=== PATIENT | male | born 1940 | race Caucasian/White ===

== ENCOUNTER 2022-05-20 10:47 | Day surgery (SDC) | payer MEDICARE, SELFPAY ==
--- NOTE | 2022-05-06 09:51 | PC.NURSE ---
PREOP INTERVIEW COMPLETE. PT STATES HE HAS NOT YET RECEIVED HIS BOWEL PREP INSTRUCTIONS. AT THE END OF INTERVIEW, I TRANSFERRED PT TO DR VITAL OFFICE. PT TOLD TO REQUEST BOWEL PREP INSTRUCTIONS. PT VERBALIZED UNDERSTANDING.
[2022-05-06 09:52] VITALS: BMI 26.1
--- NOTE | 2022-05-19 13:09 | SUR.PREOP ---
0900, late note, PT CALLED TO SPEAK TO NURSE REGARDING COLONOSCOPY TOMORROW, 05/20/22. PT STATES HE TAKE A FIBER SUPPLEMENT DAILY. HE HAD HIS LAST COLONOSCOPY IN [address] WILLIAM. HE HAD A PROSTATE BIOPSY IN [address] CASAS.
--- NOTE | 2022-05-20 11:54 | P.PNAN_ITS ---
Anes - Initial Pre Proc Eval Procedure: Operation Date: 05/20/22 12:30 Proposed Procedures p Screening Colonoscopy - Camden Oliveira MD Date/Time: 05/20/22 11:54 Surgeon: Camden Oliveira MD Pre Op Diagnosis: Neoplasm Screening Patient Data Age: 81 Gender: M Height: 1.74 m Weight: 79 kg Allergies Allergy/AdvReac Type Severity Reaction Status Date / Time No Known Allergies Allergy Verified 05/20/22 12:07 Home Medications Medication Instructions Recorded Confirmed Type sodium,potassium,mag sulfates 17.5 See Rx Instructions PO .COMPLEX 05/04/22 05/20/22 Rx gram-3.13 gram-1.6 gram oral soln #354 mL (Suprep Bowel Prep Kit) amlodipine 10 mg tablet 10 mg PO DAILY 05/06/22 05/20/22 History atorvastatin 20 mg tablet 20 mg PO HS 05/06/22 05/20/22 History finasteride 5 mg tablet 5 mg PO HS 05/06/22 05/20/22 History quinapril 40 mg tablet 40 mg PO DAILY 05/06/22 05/20/22 History psyllium husk 0.52 gram capsule 0.52 g PO DAILY 05/19/22 05/20/22 History (Fiber (psyllium husk)) Patient hx anesthesia problems: none Family hx anesthesia problems: none Results Review: All pre-operative results and documents have been reviewed as part of the pre-operative evaluation. [facility] Past Medical History Medical History (Updated 05/20/22 @ 12:25 by Camden Oliveira MD) Hyperlipidemia Hypertension Family History Family History (Updated 12/12/14 @ 08:47 by DOCTOR UNKNOWN) Mother Hypertension Sibling Malignant neoplasm of prostate Father Family history of heart disease in male family member before age 55 Acute myocardial infarction Social History Social History Smoking status: Never smoker Alcohol intake: current Drinks per week: 1 Alcohol use details: 1 GLASS OF WINE PER WEEK Substance use: never Substance use type: does not use Living arrangements: with family Spiritual care concerns: No Anes - Eval Final PreProcedure Day of Procedure 05/20/22 11:54 Patient weight: overweight Heart: regular rate and rhythm Lungs: clear to auscultation Airway: Mallampati scale class II Neurological: alert and oriented Last oral intake: >/= 8 hours ASA classification: II Emergent: no Anesthetic plan: proceed Anesthesia type and monitoring: general GIVS and standard monitoring Results Review: All pre-operative results and documents have been reviewed as part of the pre- operative evaluation. Informed Consent: The patient's anesthetic plan and its attendant risks and benefits were discussed with the patient/family/POA. Questions were solicited and answers provided to the satisfaction of the patient/family/POA.
--- NOTE | 2022-05-20 12:24 | P.HP_ITS ---
History of Present Illness History of Present Illness Consent: Risks, benefits, and alternatives have been discussed and questions answered. Patient agrees to proceed with procedure. Chief complaint: Neoplasm Screening Narrative: Joe Christina is a 81 year old male Presents for screening colonoscopy. Patient's current weight appetite and bowel movements are normal. Patient denies abdominal pain. He has had no bleeding. Family history is noncontributory. Previous colonoscopy 9 or 10 years ago was unremarkable. Review of Systems Review of Systems: Review of systems noncontributory. [facility] Past Medical History Medical History (Updated 05/20/22 @ 12:25 by Camden Oliveira MD) Hyperlipidemia Hypertension Family History Family History (Updated 12/12/14 @ 08:47 by DOCTOR UNKNOWN) Mother Hypertension Sibling Malignant neoplasm of prostate Father Family history of heart disease in male family member before age 55 Acute myocardial infarction Social History Social History Smoking status: Never smoker Alcohol intake: current Drinks per week: 1 Alcohol use details: 1 GLASS OF WINE PER WEEK Substance use: never Substance use type: does not use Living arrangements: with family Spiritual care concerns: No Meds Home Medications and Allergies Home Medications Medication Instructions Recorded Confirmed Type sodium,potassium,mag sulfates 17.5 See Rx Instructions PO .COMPLEX 05/04/22 05/20/22 Rx gram-3.13 gram-1.6 gram oral soln #354 mL (Suprep Bowel Prep Kit) amlodipine 10 mg tablet 10 mg PO DAILY 05/06/22 05/20/22 History atorvastatin 20 mg tablet 20 mg PO HS 05/06/22 05/20/22 History finasteride 5 mg tablet 5 mg PO HS 05/06/22 05/20/22 History quinapril 40 mg tablet 40 mg PO DAILY 05/06/22 05/20/22 History psyllium husk 0.52 gram capsule 0.52 g PO DAILY 05/19/22 05/20/22 History (Fiber (psyllium husk)) Allergies Allergy/AdvReac Type Severity Reaction Status Date / Time No Known Allergies Allergy Verified 05/20/22 12:07 Exam Narrative: Physical exam reveals patient to be alert. Vital signs stable. HEENT exam is unremarkable. Patient is anicteric. Lungs are clear to auscultation and percussion. Heart is without murmur or extra sounds. Abdomen bowel sounds are present soft nontender with no hepatosplenomegaly. Digital external rectal exam is normal. Assessment and Plan Assessment and plan (1) Encounter for screening colonoscopy: Code(s): Z12.11 - Encounter for screening for malignant neoplasm of colon Status: Acute Assessment and Plan: Patient presents today for screening colonoscopy. He appears to be at average risk for colon polyps. Further recommendations may be given after endoscopy.
[2022-05-20] MEDS: LACTATED RINGERS 1,000 ML 150 ML IV CONT (12:35)
[2022-05-20 12:37] VITALS: BP 163/92; PULSE 89; RESP 18; TEMP 37; O2SAT 97
[2022-05-20 13:30] VITALS: BP 126/79; PULSE 84; RESP 18; O2SAT 99
--- NOTE | 2022-05-20 13:31 | WPDANESPN ---
Anes - Prog Note Post-Op Date/Time: 05/20/22 13:31 Cardiovascular status: normal Respiratory status: normal Airway patency: baseline Mental status: baseline Post-Op hydration status: normal Vital Signs: Last Vital Signs Temp 37.0 C 05/20/22 12:37 Pulse 89 05/20/22 12:37 Resp 18 05/20/22 12:37 BP 163/92 H 05/20/22 12:37 Pulse Ox 97 05/20/22 12:37 O2 Del Method Room Air 05/20/22 12:37 Pain Score (VAS): 0 I/O: Intake & Output 05/19/22 05/20/22 05/20/22 23:59 07:59 15:59 Intake Total 500 Balance 500 Post-procedural complaints: none Patient Feedback: Patient satisfied with anesthetic care. Other Findings: Patient vital signs back to baseline. Patient denies nausea and vomiting. Patient's pain under control. Patient OK for discharge.
[2022-05-20 13:40] VITALS: BP 127/71; PULSE 78; RESP 20; O2SAT 99
[2022-05-20 13:50] VITALS: BP 129/80; PULSE 85; RESP 20; O2SAT 99
== END 2022-05-20 14:05 | disposition home or self-care (01) ==
PROVIDERS: PCP Physician Assistant; Visit Provider Internal Medicine Gastroenterology
PROC: 0DJD8ZZ Inspection of Lower Intestinal Tract, Via Natural or Artificial Opening Endoscopic (ICD-10-PCS; CPT 45378; principal; 2022-05-20 12:30)
DX: Z12.11 Encounter for screening for malignant neoplasm of colon (principal)
CPT/HCPCS: 45378

== ENCOUNTER 2023-05-18 00:49 | Day surgery (SDC) | payer MEDICARE, SELFPAY ==
[2023-05-17 14:06] VITALS: BMI 26.8
[2023-05-18] VITALS (14 sets, daily range): BP systolic 118–155; BP diastolic 53–86; PULSE 62–85; RESP 12–22; TEMP 36.5; O2SAT 94–100; BMI 25.8
[2023-05-18 07:49] LABS: Basophils Percent Auto 0.8 % (0.2-1.2); Eosinophils Absolute Auto 0.1 K/mm3 (0-0.3); Eosinophils Percent Auto 1.6 % (0-4.4); Hematocrit 47.1 % (42.0-52.0); Immature Granulocyte Absolute 0.02 K/mm3 (0.00-0.031); Immature Granulocyte Percent A 0.4 % (0-0.5); Lymphocytes Absolute Auto 0.92 K/mm3 (0.9-3.2); Lymphocytes Percent Auto 18.1 % (18.3-44.2); Mean Corpuscular HGB Conc 31.8 g/dl (32-36); Mean Corpuscular Hemoglobin 27.4 pg (26-34); Mean Corpuscular Volume 85.9 fl (80-100); Mean Platelet Volume 9.1 fl (7.4-10.4); Monocytes Absolute Auto 0.4 K/mm3 (0.1-0.6); Monocytes Percent Auto 7.3 % (2.6-8.5); Neutrophils Absolute Auto 3.7 K/mm3 (1.3-6.7); Neutrophils Percent Auto 71.8 % (45.5-73.1); Platelet Count Result 205 k/mm3 (150-375); Red Blood Count 5.48 M/mm3 (4.6-6.20); Red Cell Distribution Width 14.4 % (11.5-14.5); White Blood Count 5.1 K/mm3 (4.5-10.0)
[2023-05-18 07:59] LABS: Anion Gap 9 mmol/L (8-16); Blood Urea Nitrogen 19 mg/dL (9-20); Calcium 9.3 mg/dL (8.4-10.2); Carbon Dioxide 27 mmol/L (22-30); Chloride 105 mmol/L (98-107); Estimated CRCL calculation 56 ml/min; Estimated Glomerular Filt Rate > 60; Glucose 105 mg/dL (65-110); Potassium 3.3 mmol/L (3.4-5.0); Sodium 141 mmol/L (137-145)
[2023-05-18 08:00] LABS: INR 1.1; Prothrombin Time 14.4 Seconds (11.1-14.7)
--- NOTE | 2023-05-18 10:00 | PM.IMHP ---
H&P: HPI History of Present Illness Date/Time: 05/18/23 10:00 Chief Complaint: Outpatient [facility] Narrative: Patient is an 82 year old male with hypertension, hyperlipidemia who is referred for [facility] for heart failure with reduced ejection fraction, LBBB, chest pain. 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 Review of Systems Review of Systems: All systems reviewed & are unremarkable except as noted in HPI and below (HPI) [facility] Past Medical History Medical History Hyperlipidemia Hypertension Family History Family History Mother Hypertension Sibling Malignant neoplasm of prostate Father Family history of heart disease in male family member before age 55 Acute myocardial infarction Hypertension Social History Social History Smoking status: Never smoker Second hand tobacco smoke exposure: No Alcohol intake: former Drinks per week: 1 Alcohol use details: 6 oz wine with dinner Substance use: never Substance use type: does not use Lack of Transportation: No Lack of Food: Never True Current Housing: I Have Housing Concerned About Future Housing: No Difficulty Paying Gas/Electric Bills: No Difficulty Paying for Meds: No Currently Unemployed: No Education: Trade/Vocational Certificate Difficulty w/ Childcare or Family Care: No Living arrangements: with family Spiritual care concerns: No Meds Home Medications and Allergies Home Medications Medication Instructions Recorded Confirmed Type amlodipine 10 mg tablet 10 mg PO DAILY 05/06/22 05/17/23 History atorvastatin 20 mg tablet 20 mg PO HS 05/06/22 05/18/23 History finasteride 5 mg tablet 5 mg PO HS 05/06/22 05/18/23 History psyllium husk 0.52 gram capsule 0.52 g PO DAILY 05/19/22 05/17/23 History (Fiber (psyllium husk)) lisinopril 40 mg tablet 40 mg PO DAILY 12/09/22 05/18/23 History cholecalciferol (vitamin D3) 25 1,000 unit PO DAILY 05/17/23 05/17/23 History mcg (1,000 unit) tablet (Vitamin D3) garlic 1,000 mg capsule 1,000 mg PO DAILY 05/17/23 05/17/23 History Allergies Allergy/AdvReac Type Severity Reaction Status Date / Time No Known Allergies Allergy Verified 05/17/23 14:28 Vital Signs Vital Signs - 24 hr 05/18/23 07:27 Temperature 36.5 C Pulse Rate 67 Respiratory Rate 12 Blood Pressure 155/82 H Pulse Oximetry 97 Oxygen Delivery Room Air Exam Const: General: comfortable and no acute distress HENMT: Mouth: Yes moist mucous membranes Eyes: General: appearance normal, both eyes and all related structures Sclera: sclerae normal Neck: Neck: supple Resp: Effort & Inspection: normal respiratory effort Cardio: Rate: regular rate Rhythm: regular rhythm Skin: General skin exam: normal color Neuro: Speech: normal speech Psych: Mental Status: mental status grossly normal Affect: normal affect H&P: Results Labs Labs: Short CBC 05/18/23 Range/Units 07:36 WBC 5.1 (4.5-10.0) K/mm3 Hgb 15.0 (14.0-18.0) g/dL Hct 47.1 (42.0-52.0) % Plt Count 205 (150-375) k/mm3 [facility] 05/18/23 07:36 Sodium 141 Potassium 3.3 L Chloride 105 Carbon Dioxide 27 BUN 19 Creatinine 0.90 Glucose 105 Calcium 9.3 Assessment and Plan Assessment and plan (1) Cardiomyopathy: Code(s): I42.9 - Cardiomyopathy, unspecified Status: Acute Plan Proceed with [facility]
--- NOTE | 2023-05-18 10:04 | WPDMODSED ---
Moderate Sedation Note-Pt Data Patient Data Diagnosis: HFrEF, LBBB, chest pain Present Complaint: HFrEF, LBBB, chest pain Procedure to be performed/Plan: Coronary angiography, left heart cath, +/- PCI Allergies Allergy/AdvReac Type Severity Reaction Status Date / Time No Known Allergies Allergy Verified 05/17/23 14:28 Home Medications Medication Instructions Recorded Confirmed Type amlodipine 10 mg tablet 10 mg PO DAILY 05/06/22 05/17/23 History atorvastatin 20 mg tablet 20 mg PO HS 05/06/22 05/18/23 History finasteride 5 mg tablet 5 mg PO HS 05/06/22 05/18/23 History psyllium husk 0.52 gram capsule 0.52 g PO DAILY 05/19/22 05/17/23 History (Fiber (psyllium husk)) lisinopril 40 mg tablet 40 mg PO DAILY 12/09/22 05/18/23 History cholecalciferol (vitamin D3) 25 1,000 unit PO DAILY 05/17/23 05/17/23 History mcg (1,000 unit) tablet (Vitamin D3) garlic 1,000 mg capsule 1,000 mg PO DAILY 05/17/23 05/17/23 History Current Medications: Active Medications Sodium Chloride (Normal Saline Iv) 500 mls @ 100 mls/hr IV CONT .Q5H RENETTA Sodium Chloride (Normal Saline Iv) 1,000 mls @ 125 mls/hr IV CONT .Q8H ONE Stop: 05/18/23 17:58 Sedation/Anesthesia: No previous sedation/anesthesia problems (including family history). [facility] Past Medical History Medical History Hyperlipidemia Hypertension Family History Family History Mother Hypertension Sibling Malignant neoplasm of prostate Father Family history of heart disease in male family member before age 55 Acute myocardial infarction Hypertension Social History Social History Smoking status: Never smoker Second hand tobacco smoke exposure: No Alcohol intake: former Drinks per week: 1 Alcohol use details: 6 oz wine with dinner Substance use: never Substance use type: does not use Lack of Transportation: No Lack of Food: Never True Current Housing: I Have Housing Concerned About Future Housing: No Difficulty Paying Gas/Electric Bills: No Difficulty Paying for Meds: No Currently Unemployed: No Education: Trade/Vocational Certificate Difficulty w/ Childcare or Family Care: No Living arrangements: with family Spiritual care concerns: No Mod Sed Physical Exam Physical Exam Pre Procedural Exam: Normal: Appearance, Lungs, Heart Rate, Heart Rhythm, Neuro Exam, Abdomen, Extremities and Skin Hours since solid foods: 12 Hours since liquid intake: 8 Mallampati Classification: class II Internal Medicine - PN: Obj Da Vital Signs Vital Signs: Vital Signs - 24 hr 05/18/23 07:27 Temperature 36.5 C Pulse Rate 67 Respiratory Rate 12 Blood Pressure 155/82 H Pulse Oximetry 97 Oxygen Delivery Room Air Meds/Results Medications: Active Medications Generic Name Dose Route Start Last Admin Trade Name Freq PRN Reason Stop Dose Admin Sodium Chloride 500 mls @ 100 mls/hr 05/18/23 07:00 Normal Saline Iv IV CONT .Q5H RENETTA Sodium Chloride 1,000 mls @ 125 mls/hr 05/18/23 09:59 Normal Saline Iv IV CONT 05/18/23 17:58 .Q8H ONE Labs 05/18/23 07:36 05/18/23 07:36 Labs: Laboratory Results - last 24 hr 05/18/23 07:36 WBC 5.1 RBC 5.48 Hgb 15.0 Hct 47.1 MCV 85.9 MCH 27.4 MCHC 31.8 L RDW 14.4 Plt Count 205 MPV 9.1 Immature Gran % (Auto) 0.4 Neut % (Auto) 71.8 Lymph % (Auto) 18.1 L [place] % (Auto) 7.3 Eos % (Auto) 1.6 Baso % (Auto) 0.8 Lymph # (Auto) 0.92 [place] # (Auto) 0.4 Eos # (Auto) 0.1 Baso # (Auto) 0.0 Abs Immat Gran (auto) 0.02 Absolute Neuts (auto) 3.7 Absolute Nucleated RBC 0.0 Nucleated RBC % 0.0 PT 14.4 INR 1.1 Sodium 141 Potassium 3.3 L Chloride 105 Carbon Dioxide 27 Anion Gap 9 BUN 19 Creatinine 0.90 Estim Creat Clear Calc 56 Estimated GFR > 60
--- NOTE | 2023-05-18 10:05 | WPDCARDPROC ---
Cardiac Cath Procedure Note Date of procedure:: 05/18/23 Performing physician:: CATHETERIZATION LABORATORY REPORT Procedure Date: 05/18/2023 Transport Operations Inspector: Jose Diaz M.D., [facility]? Referring Physician: Von Gonsalez M.D. Anesthesia: Versed and Fentanyl were ordered and given in my presence at 09:21, procedure ended at 09:45. Supervision of nurse monitored moderate sedation with Versed and Fentanyl was provided for 24 minutes. Total of Versed 1mg and Fentanyl 25mcg were administered by the Visual Merchandising Director RN Cinthya Ayala. Pre-op Diagnosis: Coronary artery disease Post-op Diagnosis: Mild non-obstructive coronary artery disease. Procedure(s): 1. Moderate sedation 2. Ultrasound-guided access of the right radial artery 3. Coronary angiography Access Site: Right radial artery Brief History and Clinical Indications: Patient is an 82 year old male with hypertension, hyperlipidemia who is referred for [facility] for heart failure with reduced ejection fraction, LBBB, chest pain. 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 All risks, benefits and alternatives to left heart catheterization with or without percutaneous coronary intervention was discussed at length with the patient. Risk of complications including but not limited to bleeding, infection, arrhythmia, stroke, worsening kidney function, blood loss, groin hematoma, limb loss, emergency coronary artery bypass grafting, and even were discussed with the patient and all questions were answered. The patient understood and wished to proceed. Time out called, patient name, date of , medical record number, allergies, procedure performed, identify Transport Operations Inspector, patient and staff member concurred with accurate data, procedure carried on. Findings: LEFT HEART CATHETERIZATION FINDINGS: 1. Left main: The left main coronary artery is widely patent without any significant obstructive disease. 2. Left anterior descending: The proximal-mid LAD has mild disease. The mid LAD has luminal irregularities. The LAD tapers to small caliber in its distal portion. 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 There is a large caliber first diagonal branch with luminal irregularities. The second diagonal branch is a very small caliber branch. The third diagonal branch is a large caliber vessel with mild disease in its proximal-mid portion. 3. Left circumflex: The left circumflex artery has luminal irregularities. There is a large caliber OM vessel with mild disease in its proximal portion. No significant obstructive angiographic disease. 4. Right coronary artery: The RCA has mild disease in the mid portion. No significant obstructive angiographic disease. The RCA is the dominant vessel. Description of Procedure: Informed consent signed and placed in the chart. Patient transferred to wharf labourer room. Prepped and draped in usual sterile fashion. 2% lidocaine injected subcutaneously in right wrist area. 22-gauge venipuncture catheter used to access the right radial artery under ultrasound guidance. 6-FR slender sheath placed in right radial artery. Nitroglycerine and Verapamil were given intraarterial through the sheath. Versacore wire advanced under fluoroscopy 5F Tig 4 diagnostic catheter engaged Left Main Coronary Artery. 5F FR 4 diagnostic catheter engaged Right Coronary Artery Multiple orthogonal angiogram obtained and reviewed Hemostasis was achieved by application of TR band. Post Operative Condition: Stable No significant blood loss Disposition: Home Plan: The patient will be monitored in the recovery area. Discharge home after post cath bed rest is completed. The above findings were discussed with the referring physician. Continue aggressive medical therapy and risk factor sarah
--- NOTE | 2023-05-23 10:11 | PC.NURSE ---
Pt. calls into [facility] this moring 05/23/23, stating I did not get any instructions on when to remove my dressing after my procedure. Pt. states he still has gauze and clear tape dressing on right wrist and arm is bruised up to elbow . This pt was an outpatient C with Dr. Diaz on 05/18/23. Post call was completed and charted on 05/19/23. This RN instructed pt. to remove gauze and tape dressing from site and gently wash with soap and water and pat dry. Instructed pt to inspect puncture site for s/s infection or non-healing. Pt. reports sensation and movement of r. hand is WNL. Instructed pt. to call cleat maker's office to report bruising and any untoward findings after cleansing punture site. Pt. verbalizes understanding.
== END 2023-05-18 13:30 | disposition home or self-care (01) ==
PROVIDERS: PCP Physician Assistant; Visit Provider Internal Medicine
PROC: (CPT 93454; principal; 2023-05-18 08:30)
DX: I25.10 Atherosclerotic heart disease of native coronary artery without angina pectoris (principal); I42.9 Cardiomyopathy, unspecified; Q24.5 Malformation of coronary vessels; I11.0 Hypertensive heart disease with heart failure; I50.9 Heart failure, unspecified; I44.7 Left bundle-branch block, unspecified; E78.5 Hyperlipidemia, unspecified
CPT/HCPCS: 36415; 80048; 85025; 85610; 93454; A9270; C1769; C1887; C1894; J1644; J2250; J2305; J3010; J7040

== ENCOUNTER 2023-08-10 09:48 | Outpatient (CLI) | payer MEDICARE, SELFPAY ==
[2023-08-10 11:20] LABS: Basophils Percent Auto 0.5 % (0.2-1.2); Eosinophils Absolute Auto 0.1 K/mm3 (0-0.3); Eosinophils Percent Auto 1.7 % (0-4.4); Hematocrit 48.4 % (42.0-52.0); Hemoglobin 15.5 g/dL (14.0-18.0); Immature Granulocyte Absolute 0.01 K/mm3 (0.00-0.031); Immature Granulocyte Percent A 0.2 % (0-0.5); Lymphocytes Absolute Auto 1.13 K/mm3 (0.9-3.2); Lymphocytes Percent Auto 19.2 % (18.3-44.2); Mean Corpuscular Hemoglobin 27.5 pg (26-34); Mean Platelet Volume 8.6 fl (7.4-10.4); Monocytes Absolute Auto 0.6 K/mm3 (0.1-0.6); Monocytes Percent Auto 9.4 % (2.6-8.5); Neutrophils Absolute Auto 4.1 K/mm3 (1.3-6.7); Platelet Count Result 182 k/mm3 (150-375); Red Blood Count 5.63 M/mm3 (4.6-6.20); Red Cell Distribution Width 14.9 % (11.5-14.5); White Blood Count 5.9 K/mm3 (4.5-10.0)
[2023-08-10 11:25] LABS: Albumin Level 4.4 g/dL (3.5-5.1); Anion Gap 7 mmol/L (4-12); Blood Urea Nitrogen 19 mg/dL (9-20); Calcium 9.1 mg/dL (8.4-10.2); Carbon Dioxide 32 mmol/L (22-30); Chloride 103 mmol/L (98-107); Estimated Glomerular Filt Rate > 60; Glucose 81 mg/dL (65-110); Potassium 3.3 mmol/L (3.4-5.0); Sodium 142 mmol/L (137-145)
[2023-08-10 11:39] LABS: Hemoglobin A1C 5.5 % (<5.7)
[2023-08-10 12:03] LABS: Urine Cotinine NEGATIVE
== END 2023-08-10 09:49 | disposition home or self-care (01) ==
LOC: ANHSURGERY 09:52
PROVIDERS: PCP Physician Assistant; Visit Provider Orthopaedic Surgery
DX: M16.12 Unilateral primary osteoarthritis, left hip (principal); Z01.818 Encounter for other preprocedural examination
CPT/HCPCS: 80048; 80307; 82040; 83036; 85025; 87081

== ENCOUNTER 2023-09-06 10:31 | Observation (INO) | payer MEDICARE, SELFPAY ==
[2023-08-10 10:00] VITALS: BMI 27.4
--- NOTE | 2023-08-10 10:20 | PC.NURSE ---
Report to the Outpatient Waiting Room, entrance under the green pavilion located off [facility], at time __6:00 AM on date _09/05/23 . Planned Procedure Time: 7:30 AM . Time changes happen often and if your time is changed the preop area will call you the afternoon before. - You and your visitor will be asked to self-screen and do not enter if you have any COVID symptoms. - A mask is optional within the hospital at this time. Patients may have clear liquids (water, carbonated beverages, clear teas, apple juice) until 3 hours prior to surgery ( 4:30 AM)with a maximum of 20 ounces. - No food from midnight until time of surgery - Infants may have breast milk until 4 hours before surgery, infant formula 6 hours prior to surgery. - Children will be allowed to drink immediately following surgery. If applicable, please bring a bottle or sippy cup to assist with drinking. Juice, water, soda, and popsicles are readily available. For infants on formula, please bring formula the day of surgery. Pacifiers are allowed. Take the following medications with a SIP of water the morning of surgery: ___AMLODIPINE,METOPROLOL DO NOT STOP ANY OF YOUR OTHER PRESCRIPTION MEDICATIONS PRIOR TO SURGERY ?EXCEPT THE FOLLOWING Medications to discontinue per physician ___HOLD ALL VITAMINS AND SUPPLEMENTS _3 DAYS PRE OP .LAST DOSE 09/01/23 Date to take last dose Please no make-up, nail niuean, hairspray, perfume, deodorant, or body powder the day of surgery. No jewelry (including any body piercings) or valuables the day of surgery, leave them at home. Please take a shower or bath the night before, or the morning of, surgery with an antibacterial soap. Wear comfortable, loose fitting clothing. Children are encouraged to wear pajamas. - Jewelry must be removed prior to entering the operating room. Rings and piercings that are not removed may be cut off. - The hospital will not accept responsibility for valuables. - Please leave all valuables, including medications, at home the day of surgery. If you are going home after surgery, a licensed driver license reviewing officer must drive you home. - NO public transportation without another adult if you receive anesthesia. - We recommend that an adult stay with you for 24 hours following discharge. - We also recommend that you do not drive, make important decision, drink alcoholic beverages, or take any drugs that were not prescribed by your health care provider for at least 24 hours after your discharge time. Follow any additional instructions given to you from your surgeon. If you or anyone in your household have experienced Covid symptoms in the past week, please notify your surgeon or the nurse liaison at the phone number below for possible testing. VERBAL AND WRITTEN instructions given to __PATIENT AND SOLOMON and asked if any additional questions and then verbalized understanding. Patient advised to call surgeon office or pre surgery nurse liaison [phone] if any additional questions.
[2023-08-10 10:25] VITALS: BP 132/87; PULSE 62; RESP 18; TEMP 36.6; O2SAT 98
--- NOTE | 2023-09-02 10:16 | PM.IMHP ---
H&P: HPI History of Present Illness Date/Time: 09/02/23 10:16 Chief Complaint: Left hip DJD Narrative: 82-year-old male who presents today for his left anterior total hip arthroplasty patient having pain 6 years. He has severe osteoarthritis. He is having pain on daily basis. It is limiting his normal daily activities. Patient does have a cardiac history and is unable take anti-inflammatories due to this. He feels at this point he would rather proceed with total hip arthroplasty rather than continue nonsurgical treatment. Review of Systems Review of Systems: All systems reviewed & are unremarkable except as noted in HPI and below PMFSH Past Medical History Medical History Hyperlipidemia Hypertension Family History Family History Mother Hypertension Sibling Malignant neoplasm of prostate Father Family history of heart disease in male family member before age 55 Acute myocardial infarction Hypertension Social History Social History (Updated 07/11/23 @ 15:15 by Yvette Posadas CMA) Smoking status: Never smoker Second hand tobacco smoke exposure: No Additional smoking assessment comments: DENIES ANY FORM OF TOBACCO USE Alcohol intake: current Drinks per week: 1 Alcohol use details: 6 oz wine with dinner- hasn't had a drink in the last year Substance use: never Substance use type: does not use Do You Feel Safe in your Home?: Yes Lack of Transportation: No Lack of Food: Never True Current Housing: I Have Housing Concerned About Future Housing: No Difficulty Paying Gas/Electric Bills: No Difficulty Paying for Meds: No Currently Unemployed: No Education: Trade/Vocational Certificate Difficulty w/ Childcare or Family Care: No Living arrangements: with family Occupation/Education: retired Spiritual care concerns: No Meds Home Medications and Allergies Home Medications Medication Instructions Recorded Confirmed Type amlodipine 10 mg tablet 10 mg PO DAILY 05/06/22 08/10/23 History atorvastatin 20 mg tablet 20 mg PO QPM 05/06/22 08/10/23 History finasteride 5 mg tablet 5 mg PO HS 05/06/22 08/10/23 History cholecalciferol (vitamin D3) 25 1,000 unit PO EVERY OTHER DAY 05/17/23 08/10/23 History mcg (1,000 unit) tablet (Vitamin D3) garlic 1,000 mg capsule 1,000 mg PO DAILY 05/17/23 08/10/23 History metoprolol succinate 25 mg 25 mg PO DAILY 07/11/23 08/10/23 History tablet,extended release 24 hr sacubitril 24 mg-valsartan 26 mg 1 tablet PO BID 07/11/23 08/10/23 History tablet (Entresto) multivitamin 1 tablet PO DAILY 08/10/23 08/10/23 History vitamin B complex 1 cap PO EVERY OTHER DAY 08/10/23 08/10/23 History Allergies Allergy/AdvReac Type Severity Reaction Status Date / Time No Known Allergies Allergy Verified 08/10/23 10:01 Exam Narrative: 82-year-old male he is 5 ft 8 177 lb. He is very alert pleasant. His left hip flexion is to 105 which causes some lateral hip pain. Internal rotation lacks 20? from neutral causing him anterior lateral hip pain. External rotation is 35. Stinchfield maneuver causes his anterior lateral hip pain. He has normal abduction strength in the lateral position. No tenderness over the greater trochanter. Skin around the hip and groin crease are all normal. 2+ dorsalis pedis and posterior artery pulse palpable. There is no edema in lower extremities. Resp: Auscultation: clear to auscultation bilaterally Cardio: Rate: regular rate Rhythm: regular rhythm Assessment and Plan Assessment and plan (1) Osteoarthritis of left hip: Qualifiers: Osteoarthritis type: primary Qualified Code(s): M16.12 - Unilateral primary osteoarthritis, left hip Code(s): M16.12 - Unilateral primary osteoarthritis, left hip Status: Acute Plan 82-year-old male who has severe o
[2023-09-05] VITALS (16 sets, daily range): BP systolic 98–141; BP diastolic 46–85; PULSE 58–83; RESP 11–20; TEMP 35.5–36.7; O2SAT 92–100
[2023-09-05] MEDS: VANCOMYCIN 1,250 MG/NS 250 ML BAG 166.67 MG IVPB (07:08)
[2023-09-05] MEDS: LACTATED RINGERS 1,000 ML 30 ML IV CONT ×2 (07:10→11:32)
--- NOTE | 2023-09-05 07:11 | WPDANESEPPF ---
Anes - Initial Pre Proc Eval Procedure: Operation Date: 09/05/23 07:30 Proposed Procedures p Left Total Hip Arthroplasty, Anterior Approach - Clarence Enamorado MD Date/Time: 09/05/23 07:11 Surgeon: Clarence Enamorado MD Pre Op Diagnosis: OA left hip Patient Data Age: 82 Gender: M Height: 1.7 m Weight: 79.5 kg Last Vital Signs Temp 97.8 F 08/10/23 10:25 Pulse 62 08/10/23 10:25 Resp 18 08/10/23 10:25 BP 132/87 08/10/23 10:25 Pulse Ox 98 08/10/23 10:25 O2 Del Method Room Air 08/10/23 10:25 Allergies Allergy/AdvReac Type Severity Reaction Status Date / Time No Known Allergies Allergy Verified 08/10/23 10:01 Home Medications Medication Instructions Recorded Confirmed Type amlodipine 10 mg tablet 10 mg PO DAILY 05/06/22 08/10/23 History atorvastatin 20 mg tablet 20 mg PO QPM 05/06/22 08/10/23 History finasteride 5 mg tablet 5 mg PO HS 05/06/22 08/10/23 History cholecalciferol (vitamin D3) 25 1,000 unit PO EVERY OTHER DAY 05/17/23 08/10/23 History mcg (1,000 unit) tablet (Vitamin D3) garlic 1,000 mg capsule 1,000 mg PO DAILY 05/17/23 08/10/23 History metoprolol succinate 25 mg 25 mg PO DAILY 07/11/23 08/10/23 History tablet,extended release 24 hr sacubitril 24 mg-valsartan 26 mg 1 tablet PO BID 07/11/23 08/10/23 History tablet (Entresto) multivitamin 1 tablet PO DAILY 08/10/23 08/10/23 History vitamin B complex 1 cap PO EVERY OTHER DAY 08/10/23 08/10/23 History Patient hx anesthesia problems: none Family hx anesthesia problems: none Results Review: All pre-operative results and documents have been reviewed as part of the pre-operative evaluation. [facility] Past Medical History Medical History Hyperlipidemia Hypertension Family History Family History Mother Hypertension Sibling Malignant neoplasm of prostate Father Family history of heart disease in male family member before age 55 Acute myocardial infarction Hypertension Social History Social History (Updated 07/11/23 @ 15:15 by Yvette Posadas CMA) Smoking status: Never smoker Second hand tobacco smoke exposure: No Additional smoking assessment comments: DENIES ANY FORM OF TOBACCO USE Alcohol intake: current Drinks per week: 1 Alcohol use details: 6 oz wine with dinner- hasn't had a drink in the last year Substance use: never Substance use type: does not use Do You Feel Safe in your Home?: Yes Lack of Transportation: No Lack of Food: Never True Current Housing: I Have Housing Concerned About Future Housing: No Difficulty Paying Gas/Electric Bills: No Difficulty Paying for Meds: No Currently Unemployed: No Education: Trade/Vocational Certificate Difficulty w/ Childcare or Family Care: No Living arrangements: with family Occupation/Education: retired Spiritual care concerns: No Anes - Eval Final PreProcedure Day of Procedure 09/05/23 07:11 Patient weight: normal Heart: regular rate and rhythm Lungs: clear to auscultation Airway: Mallampati scale class II Neurological: alert and oriented Last oral intake: >/= 8 hours ASA classification: III Emergent: no Anesthetic plan: proceed Anesthesia type and monitoring: general ETT and standard monitoring Results Review: All pre-operative results and documents have been reviewed as part of the pre-operative evaluation. Informed Consent: The patient's anesthetic plan and its attendant risks and benefits were discussed with the patient/family/POA. Questions were solicited and answers provided to the satisfaction of the patient/family/POA.
[2023-09-05] MEDS: ACETAMINOPHEN 500 MG TABLET 1000 MG PO (07:12)
[2023-09-05] MEDS: TRANEXAMIC ACID 1,000MG/ISO100 1,000 MG/100 ML BAG 200 MG IVPB (07:13)
--- NOTE | 2023-09-05 07:15 | WPDHPUPDATE1 ---
History and Physical Update Update Date/Time: 09/05/23 07:15 History and Physical has been reviewed, including an updated exam of the patient. There are NO changes in the patient's condition. Risks, benefits, and alternatives have been discussed and questions answered. Patient agrees to proceed with procedure.
[2023-09-05] MEDS: ceFAZolin 2 GM/D5W 50 ML 2 GM/50 ML BAG IVPB ×2 (07:53→16:56)
[2023-09-05] MEDS: ceFAZolin SODIUM 1 GM VIAL 3 GM (08:24)
[2023-09-05] MEDS: SODIUM CHLORIDE 0.9% IV 37.7 ML, MORPHINE SULFATE INJ (*CRX) 2 MG, ROPivacaine HCL 1% 2... INFILTRATE (08:24)
[2023-09-05] MEDS: ceFAZolin SODIUM 1 GM VIAL 2 GM IV PUSH (10:42)
[2023-09-05] MEDS: TRANEXAMIC ACID 1,000 MG/10 ML AMPUL 1000 MG IV PUSH (10:44)
[2023-09-05] MEDS: fentaNYL CITRATE INJ (*CRX) 100 MCG/2 ML VIAL 25 MCG IV PUSH ×5 (11:50→12:19)
--- NOTE | 2023-09-05 11:51 | W.PM.PROC2 ---
Procedure Note - Detailed Date of Procedure 09/05/23 Pre-op Diagnosis OA left hip Post-op Diagnosis Same Procedure Performed Direct anterior approach left total hip arthroplasty Surgeon Clarence Enamorado MD [employer]er Sandee MARTE Anesthesia General Description of Procedure Patient was brought to the operating room general anesthesia was administered he received 2 g of Ancef weight based vancomycin preoperatively 1 g of TXA. The feet were padded boots applied patient transferred to the [facility] [place] table with SCDs on in place C[place]lin catheter placed. Left hip prepped draped usual fashion. 10 cm longitudinal incision was made starting 3 cm lateral to the ASIS. Fascia over the tensor fascia beba was exposed and longitudinally incised elevating the fascia over the anterior 1/2 the TFL muscle. Interval between TFL and rectus femoris developed. Crossing branches of ascending branch lateral femoral circumflex vessels were ligated with suture divided. Retractor was placed anterior to the capsule hip abducted internally rotated the gluteus minimus elevated off the lateral capsule. Inverted T capsulotomy was performed. Femoral neck osteotomy made according to preoperative templating. Femoral head was removed. It measured 54 mm diameter. It had prominent peripheral overgrowth. Acetabulum was exposed minimal labrum excised. He had large peripheral osteophytes circumferentially. The leg was externally rotated extended and interval between conjoined tendon and piriformis incised allowing the piriformis to flip and the conjoined tendon to recess. With the leg back in the horizontal position acetabulum was exposed and we medialized with a 44 Reamer and reamed up to 53 mm and then a light reaming with a 54 Reamer. We could not insert the trial until a full seating of the 54 Reamer was performed which was done carefully. The 54 trial now fit snugly and we chose the 54 pinnacle cup which was placed at 40? of abduction and anteversion appropriate to the anatomy. An excellent Press-Fit was achieved a single screw placed in the ilium for additional fixation. The 36 inner diameter 0 degree liner was seated without difficulty. We then carefully removed the hypertrophic osteophyte from around the acetabulum circumferentially. The leg was externally rotated extended and the proximal femur exposed and we broached up to a size 6 and trialed and we found that the 8.5 neck was more appropriate the +5 was a bit loose. We had the same leg length as preoperative with the 8.5 neck. There was a little bit of wiggle on the broach and we were able to work up to a size 7 which was seated at the same level and we calcar planed trialed 1 more time and confirmed that the 8.5 gave the same leg length as preoperative and appropriate soft tissue tension and stability. The real Actis 7 standard neck was fully seated without complication no cracks. Excellent Press-Fit achieved. A 0.5 neck length head was trialed 1 more time found to be appropriate and the stainless steel 8.5 mm x 36 mm femoral head was impacted on the [place] clean and dried trunnion after irrigation with antibiotic solution. The hip was reduced stability soft tissue tension reconfirmed. Two additional g of Ancef 1 1 of TXA given at time wound closure. Local anesthetic cocktail was injected. The superior capsular split closed with 2. Vicryl. Fascia closed with running 1. Vicryl. Drain placed deep in the subcu skin closed with 2 subcutaneous Vicryl and glue EBL was 825 any received 3 75 back as Cell Saver blood. There were no complications he was transferred postop recovery room in good condition. [facility] Billing Surgery - Charge Forward: Surgery Billing (Left total hip replacement)
[2023-09-05] MEDS: KETOROLAC 15 MG/ML VIAL (*BKC) IV PUSH (12:12)
[2023-09-05] MEDS: MORPHINE SULFATE (*CRX) 2 MG/ML INJ IV PUSH (14:09)
[2023-09-05] MEDS: ACETAMINOPHEN 500 MG TABLET PO ×2 (14:10→20:19)
--- NOTE | 2023-09-05 16:05 | PM.IMCN ---
Assessment and Plan Assessment and plan (1) Osteoarthritis of left hip: Qualifiers: Osteoarthritis type: primary Qualified Code(s): M16.12 - Unilateral primary osteoarthritis, left hip Code(s): M16.12 - Unilateral primary osteoarthritis, left hip Status: Acute (2) Cardiomyopathy: Code(s): I42.9 - Cardiomyopathy, unspecified Status: Acute Plan Status post left hip arthroplasty 09/05/2023 Cardiomyopathy EF 30-35% in the past. Placed on Entresto and metoprolol EF has improved to 45% on his last echo Chronic left bundle branch block ischemic workup negative minimal coronary artery disease Minimal CAD Hypertension Hyperlipidemia DVT prophylaxis on apixaban as ordered Code status full code Medications reviewed Code status reviewed HPI Date of Consult Consult date: 09/05/23 Requesting Physician: Clarence Enamorado MD Primary Care Provider: Kat Sethi, YURIDIA Consult Narrative Narrative: Joe Christina is a 82 year old male who presents to the hospital for elective left hip orin arthroplasty which was performed earlier today. Postoperatively medical team consulted for medical management. He denies any chest pain or shortness of breath. No fever chills. His working with therapy. History of cardiomyopathy improved on Entresto and metoprolol. He used to be on lisinopril prior to this switch. He had left heart catheterization which showed minimal coronary artery disease. He follows with [facility]. Review of Systems Review of Systems: - CONSTITUTIONAL: Denies weight loss, fever and chills. - HEENT: Denies changes in vision and hearing - RESPIRATORY: Denies SOB and cough. - CV: Denies palpitations and CP. - GI: Denies abdominal pain, nausea, vomiting and diarrhea. - : Denies dysuria and urinary frequency. - MSK: Denies myalgia and joint pain. - SKIN: Denies rash and pruritus. - NEUROLOGICAL: Denies headache and syncope. - PSYCHIATRIC: Denies recent changes in mood. Denies anxiety and depression. [facility] Past Medical History Medical History (Updated 09/05/23 @ 16:11 by Chaz Sim MD) Hyperlipidemia Hypertension Family History Family History Mother Hypertension Sibling Malignant neoplasm of prostate Father Family history of heart disease in male family member before age 55 Acute myocardial infarction Hypertension Social History Social History (Updated 07/11/23 @ 15:15 by Yvette Posadas CMA) Smoking status: Never smoker Second hand tobacco smoke exposure: No Additional smoking assessment comments: DENIES ANY FORM OF TOBACCO USE Alcohol intake: current Drinks per week: 1 Alcohol use details: 6 oz wine with dinner- hasn't had a drink in the last year Substance use: never Substance use type: does not use Do You Feel Safe in your Home?: Yes Lack of Transportation: No Lack of Food: Never True Current Housing: I Have Housing Concerned About Future Housing: No Difficulty Paying Gas/Electric Bills: No Difficulty Paying for Meds: No Currently Unemployed: No Education: Trade/Vocational Certificate Difficulty w/ Childcare or Family Care: No Living arrangements: with family Occupation/Education: retired Spiritual care concerns: No Meds Home Medications and Allergies Home Medications Medication Instructions Recorded Confirmed Type amlodipine 10 mg tablet 10 mg PO DAILY 05/06/22 09/05/23 History atorvastatin 20 mg tablet 20 mg PO QPM 05/06/22 09/05/23 History finasteride 5 mg tablet 5 mg PO HS 05/06/22 09/05/23 History cholecalciferol (vitamin D3) 25 1,000 unit PO EVERY OTHER DAY 05/17/23 09/05/23 History mcg (1,000 unit) tablet (Vitamin D3) garlic 1,000 mg capsule 1,000 mg PO DAILY 05/17/23 09/05/23 History metoprolol succinate 25 mg 25 mg PO DAILY 07/11/23 09/05/23 History tablet,extended release 24 h
--- NOTE | 2023-09-05 16:10 | PCPTNOTE ---
Attempted PT evaluation, pt refused. Pt reporting being too lightheaded after ambulating with OT to participate in PT. Will follow.
[2023-09-05] MEDS: SENNA/DOCUSATE SODIUM TABLET 2 TAB PO (16:55)
[2023-09-05] MEDS: oxyCODONE HCL (*CRX) 5 MG TAB IR PO ×2 (16:55→20:20)
[2023-09-05] MEDS: VANCOMYCIN 1,000 MG/NS 250 ML 1,000 MG/250 ML BAG 250 MG IVPB (18:50)
[2023-09-05] MEDS: ATORVASTATIN 20 MG TABLET PO (18:50)
[2023-09-05] MEDS: SACUBITRIL/VALSARTAN 24-26 MG TABLET 1 TAB PO (20:19)
[2023-09-05] MEDS: FAMOTIDINE 20 MG TABLET PO (20:20)
[2023-09-05] MEDS: FINASTERIDE 5 MG TABLET PO (20:20)
[2023-09-06] VITALS (10 sets, daily range): BP systolic 103–148; BP diastolic 57–81; PULSE 57–75; RESP 16–20; TEMP 36.2–36.9; O2SAT 91–96
--- NOTE | ~2023-09-06 | XR_ITS ---
AP view of the pelvis and AP and lateral views of the left hip Clinical history: Pain Findings: No acute fracture or dislocation is seen. Patient is status post left hip arthroplasty. No hardware convocation seen. There is moderate degenerative change of the right hip joint. Postoperativ e changes noted in the soft tissues related to recent left hip surgery. Impression: Status post left hip arthroplasty. Moderate degenerative change right hip joint. Reviewed, dictated and finalized at location M. Impression: Status post left hip arthroplasty. Moderate degenerative change right hip joint.
--- NOTE | ~2023-09-06 | XR_ITS ---
EXAMINATION: XR surgery orthopedic DATE: 09/05/2023 11:09 INDICATION: Posterior proximal left total hip arthroplasty. TECHNIQUE: Single frontal fluoroscopic image of the left hip was obtained during procedure performed by Dr. Enamorado. Radiologist was not present for the imaging or procedure. The amount of fluoroscopy t marc used during this procedure was 1.0 minutes. COMPARISON: 02/16/2023 FINDINGS: Interval placement of a noncemented left total hip arthroplasty which appears near-anatomic alignment on the single provided frontal projection. The acetabular component is affixed with at least a singl e screw. No fracture. Expected soft tissue gas at the operative bed. IMPRESSION: 1. Possible utilized during placement of a left total hip arthroplasty, negative for postoperative pu rposes. Reviewed, dictated and finalized at location A. IMPRESSION: 1. Possible utilized during placement of a left total hip arthroplasty, negativ e for postoperative purposes.
[2023-09-06 00:42] LABS: Anion Gap 5 mmol/L (4-12); Blood Urea Nitrogen 19 mg/dL (9-20); Calcium 8.4 mg/dL (8.4-10.2); Carbon Dioxide 27 mmol/L (22-30); Chloride 104 mmol/L (98-107); Estimated CRCL calculation 49 ml/min; Estimated Glomerular Filt Rate > 60; Glucose 215 mg/dL (65-110); Potassium 3.7 mmol/L (3.4-5.0); Sodium 136 mmol/L (137-145)
[2023-09-06] MEDS: ceFAZolin 2 GM/D5W 50 ML 2 GM/50 ML BAG IVPB ×2 (00:52→08:54)
[2023-09-06] MEDS: oxyCODONE HCL (*CRX) 5 MG TAB IR PO ×3 (00:53→08:49)
[2023-09-06] MEDS: ACETAMINOPHEN 500 MG TABLET PO ×2 (00:54→08:48)
[2023-09-06] MEDS: VANCOMYCIN 1,000 MG/NS 250 ML 1,000 MG/250 ML BAG 250 MG IVPB (06:22)
[2023-09-06 06:48] LABS: Basophils Percent Auto 0.1 % (0.2-1.2); Hematocrit 38.9 % (42.0-52.0); Hemoglobin 12.4 g/dL (14.0-18.0); Immature Granulocyte Absolute 0.03 K/mm3 (0.00-0.031); Immature Granulocyte Percent A 0.3 % (0-0.5); Lymphocytes Percent Auto 7.6 % (18.3-44.2); Mean Corpuscular HGB Conc 31.9 g/dl (32-36); Mean Corpuscular Hemoglobin 27.7 pg (26-34); Monocytes Absolute Auto 1.1 K/mm3 (0.1-0.6); Monocytes Percent Auto 11.9 % (2.6-8.5); Neutrophils Absolute Auto 7.3 K/mm3 (1.3-6.7); Neutrophils Percent Auto 80.1 % (45.5-73.1); Platelet Count Result 165 k/mm3 (150-375); Red Blood Count 4.47 M/mm3 (4.6-6.20); Red Cell Distribution Width 14.7 % (11.5-14.5); White Blood Count 9.2 K/mm3 (4.5-10.0)
[2023-09-06 06:58] LABS: Anion Gap 6 mmol/L (4-12); Blood Urea Nitrogen 21 mg/dL (9-20); Calcium 8.2 mg/dL (8.4-10.2); Carbon Dioxide 26 mmol/L (22-30); Chloride 104 mmol/L (98-107); Estimated CRCL calculation 44 ml/min; Estimated Glomerular Filt Rate > 60; Glucose 138 mg/dL (65-110); Magnesium 2.1 mg/dL (1.6-2.3); Phosphorus 3.4 mg/dL (2.5-4.5); Potassium 3.3 mmol/L (3.4-5.0); Sodium 136 mmol/L (137-145)
[2023-09-06] MEDS: CEFDINIR 300 MG CAPSULE PO ×2 (08:48→20:20)
[2023-09-06] MEDS: amLODIPine BESYLATE 5 MG TABLET 10 MG PO (08:48)
[2023-09-06] MEDS: CHOLECALCIFEROL 1,000 UNITS TABLET 1000 UNITS PO (08:48)
[2023-09-06] MEDS: METOPROLOL SUCCINATE EXT REL 25 MG TABCR PO (08:48)
[2023-09-06] MEDS: SACUBITRIL/VALSARTAN 24-26 MG TABLET 1 TAB PO ×2 (08:48→20:20)
[2023-09-06] MEDS: APIXABAN 2.5 MG TABLET PO ×2 (08:49→20:20)
[2023-09-06] MEDS: polyethylene glycoL 3350 17 GM POWD.PACK PO (08:52)
[2023-09-06] MEDS: SENNA/DOCUSATE SODIUM TABLET 2 TAB PO ×2 (08:52→17:17)
--- NOTE | 2023-09-06 10:13 | PM.PNORT ---
Progress Note: A&P Assessment and Plan (1) Status post total hip replacement, left: Code(s): Z96.642 - Presence of left artificial hip joint Status: Acute Assessment and Plan: Patient is postop day 1 after left total hip replacement. His pain is very well controlled. His chief complaint is that he feels lightheadedness while standing and montalvo chair. He is up standing flossing his teeth now. His hemoglobin is 12.4 which is a mild acute blood loss anemia but is down from his preop level of 15.5. He takes metoprolol and Entresto. His blood pressure preop was 140s over 80s and now has been 100s to 120s over 60- 80s. His potassium is unchanged from preop at 3.3. His wound looks fine he does not have unusual swelling around the left hip. With this history of congestive heart failure, I would recommend that we keep him for 1 more day as he is at risk for falling at home feeling lightheaded. We will ask the hospitalist to see him regarding his orthostatic hypotension and analysis of his current medications and check orthostatic blood pressures. I am going to reduce is scheduled oxycodone to 2.5 mg and continue with scheduled Tylenol. This may help his feeling of lightheadedness also. Plan discharge tomorrow if he is doing well. Subjective Subjective Date/Time Seen: 09/06/23 10:13 Objective Data Vital Signs Vital Signs: Vital Signs - 24 hr 09/05/23 11:32 09/05/23 11:45 09/05/23 12:00 Temperature 36.7 C Pulse Rate 83 74 75 Respiratory Rate 14 12 19 Blood Pressure 127/73 133/60 118/56 L Pulse Oximetry 100 95 94 Oxygen Delivery Simple Face Mask Room Air Room Air Oxygen Flow Rate 8 09/05/23 12:15 09/05/23 12:30 09/05/23 12:45 Temperature Pulse Rate 68 73 78 Respiratory Rate 11 L 18 18 Blood Pressure 103/60 98/46 L 99/65 L Pulse Oximetry 95 96 98 Oxygen Delivery Room Air Nasal Cannula Nasal Cannula Oxygen Flow Rate 2 2 09/05/23 13:00 09/05/23 13:15 09/05/23 15:07 Temperature Pulse Rate 70 64 Respiratory Rate 16 15 Blood Pressure 114/63 123/66 Pulse Oximetry 97 99 Oxygen Delivery Room Air Nasal Cannula Room Air Oxygen Flow Rate 2 09/05/23 13:35 09/05/23 13:50 09/05/23 14:20 Temperature 35.5 C L 35.7 C L 35.6 C L Pulse Rate 77 74 75 Respiratory Rate 16 16 18 Blood Pressure 133/74 125/85 135/65 Pulse Oximetry 100 98 98 Oxygen Delivery Oxygen Flow Rate 09/05/23 15:06 09/05/23 19:06 09/05/23 23:06 Temperature 35.7 C L 36.5 C 36.4 C Pulse Rate 65 69 76 Respiratory Rate 20 18 16 Blood Pressure 109/68 112/67 108/55 L Pulse Oximetry 96 92 96 Oxygen Delivery Oxygen Flow Rate 09/06/23 03:06 09/05/23 20:00 09/06/23 00:00 Temperature 36.5 C Pulse Rate 65 65 57 L Respiratory Rate 17 Blood Pressure 103/59 L Pulse Oximetry 94 Oxygen Delivery Oxygen Flow Rate 09/06/23 04:00 09/06/23 08:46 09/06/23 08:48 Temperature Pulse Rate 57 L 75 Respiratory Rate Blood Pressure Pulse Oximetry Oxygen Delivery Room Air Oxygen Flow Rate 09/06/23 07:06 09/06/23 07:00 Temperature 36.3 C L Pulse Rate 63 Respiratory Rate 20 Blood Pressure 112/81 Pulse Oximetry 91 Oxygen Delivery Room Air Oxygen Flow Rate Intake/Output Intake/Output: Intake & Output 09/03/23 09/04/23 09/05/23 09/06/23 23:59 23:59 23:59 23:59 Intake Total 400 50 Balance 400 50 Meds/Results Medications: Active Medications Generic Name Dose Route Start Last Admin Trade Name Eduard PRN Reason Stop Dose Admin Acetaminophen 500 mg 09/05/23 14:00 09/06/23 08:48 Acetaminophen 500 Mg Tablet PO 500 mg Q6H RENETTA Administration Amlodipine Besylate 10 mg 09/06/23 09:00 09/06/23 08:48 Amlodipine Besylate 5 Mg Tablet PO 10 mg DAILY RENETTA Administration Apixaban 2.5 mg 09/06/23 09:00 09/06/23 08:49 Apixaban 2.5 Mg Tablet PO 2.5 mg Q12HR RENETTA Administration Atorvastatin Calcium 20 mg 09/05/23 18:00 08/26
--- NOTE | 2023-09-06 12:00 | WPDANESPN ---
Anes - Prog Note Post-Op Date/Time: 09/06/23 12:00 Cardiovascular status: normal Respiratory status: normal Airway patency: baseline Mental status: baseline Post-Op hydration status: normal Vital Signs: Last Vital Signs Temp 36.3 C L 09/06/23 07:06 Pulse 75 09/06/23 08:48 Resp 20 09/06/23 07:06 BP 112/81 09/06/23 07:06 Pulse Ox 91 09/06/23 07:06 O2 Del Method Room Air 09/06/23 08:46 O2 Flow Rate 2 09/05/23 13:15 Pain Score (VAS): 0 I/O: Intake & Output 09/05/23 09/06/23 09/06/23 23:59 07:59 15:59 Intake Total 300 50 Balance 300 50 Laboratory Tests 09/06/23 05:50 09/06/23 05:50 09/06/23 09/06/23 00:23 05:50 WBC 9.2 RBC 4.47 L Hgb 12.4 L D Hct 38.9 L MCV 87.0 MCH 27.7 MCHC 31.9 L RDW 14.7 H Plt Count 165 MPV 9.0 Immature Gran % (Auto) 0.3 Neut % (Auto) 80.1 H Lymph % (Auto) 7.6 L [place] % (Auto) 11.9 H Eos % (Auto) 0.0 Baso % (Auto) 0.1 L Lymph # (Auto) 0.70 L [place] # (Auto) 1.1 H Eos # (Auto) 0.0 Baso # (Auto) 0.0 Abs Immat Gran (auto) 0.03 Absolute Neuts (auto) 7.3 H Absolute Nucleated RBC 0.000 Nucleated RBC % 0.0 Sodium 136 L 136 L Potassium 3.7 3.3 L Chloride 104 104 Carbon Dioxide 27 26 Anion Gap 5 6 BUN 19 21 H Creatinine 1.00 1.10 Estim Creat Clear Calc 49 44 Estimated GFR > 60 > 60 Glucose 215 H 138 H Calcium 8.4 8.2 L Phosphorus 3.4 Magnesium 2.0 2.1 Post-procedural complaints: none Patient Feedback: Patient satisfied with anesthetic care.
[2023-09-06] MEDS: ACETAMINOPHEN 325 MG TABLET 650 MG PO ×3 (12:07→18:32)
[2023-09-06] MEDS: oxyCODONE HCL (*CRX) 2.5 MG TAB IR PO ×3 (12:07→18:32)
[2023-09-06] MEDS: POTASSIUM CHLORIDE 20 MEQ PACKET (FOR LIQUID) 40 MEQ PO ×2 (12:11→17:17)
--- NOTE | 2023-09-06 12:52 | PM.IMPN ---
Progress Note: A&P Assessment and Plan (1) Status post total hip replacement, left: Code(s): Z96.642 - Presence of left artificial hip joint Status: Acute (2) Hypertension: Code(s): I10 - Essential (primary) hypertension Status: Acute (3) Hyperlipidemia: Code(s): E78.5 - Hyperlipidemia, unspecified Status: Acute (4) Cardiomyopathy: Code(s): I42.9 - Cardiomyopathy, unspecified Status: Acute Plan 82 year old male who presents to the hospital for elective left hip orin arthroplasty which was performed on 09/05/2023. Postoperatively medical team consulted for medical management. 1. Status post left hip arthroplasty: Primary team following Postop care as per primary team 2. History of cardiomyopathy: Continue with metoprolol, Entresto 3. Hypertension: Continue with Norvasc 4. DVT prophylaxis: Postoperatively on Eliquis 5. Hypokalemia: Supplement potassium 6. Code status: Full 7. Disposition: Per primary team Time Spent With Patient Time with patient: 15 - 25 minutes Subjective Date/time seen: 09/06/23 12:52 Interval history: Status post left hip arthroplasty postop day 1 Review of Systems Review of Systems: All systems reviewed & are unremarkable except as noted in HPI and below Exam Narrative: GENERAL: The patient is well developed, not in acute distress HEENT: Nonicteric sclerae, PERRLA, EOMI. Oropharynx clear. Moist mucous membranes. Conjunctivae appear well perfused. CHEST: Chest wall is nontender. HEART: Regular rate and rhythm without murmur, rubs, or gallops LUNGS: Clear to auscultation bilaterally. no respiratory distress ABDOMEN: Soft, positive bowel sounds, non-tender, no organomegaly. SKIN: No rash, no excessive bruising, petechiae, or purpura. NEUROLOGIC: Cranial nerves II-XII intact, alert and oriented x 3, no gross motor deficits EXTREMITIES: no edema, cyanosis or clubbing left hip with surgical dressing Objective Data Vital Signs Vital Signs: Vital Signs - 24 hr 09/05/23 13:00 09/05/23 13:15 09/05/23 15:07 Temperature Pulse Rate 70 64 Respiratory Rate 16 15 Blood Pressure 114/63 123/66 Pulse Oximetry 97 99 Oxygen Delivery Room Air Nasal Cannula Room Air Oxygen Flow Rate 2 09/05/23 13:35 09/05/23 13:50 09/05/23 14:20 Temperature 95.9 F L 96.3 F L 96.0 F L Pulse Rate 77 74 75 Respiratory Rate 16 16 18 Blood Pressure 133/74 125/85 135/65 Pulse Oximetry 100 98 98 Oxygen Delivery Oxygen Flow Rate 09/05/23 15:06 09/05/23 19:06 09/05/23 23:06 Temperature 96.2 F L 97.7 F 97.6 F Pulse Rate 65 69 76 Respiratory Rate 20 18 16 Blood Pressure 109/68 112/67 108/55 L Pulse Oximetry 96 92 96 Oxygen Delivery Oxygen Flow Rate 09/06/23 03:06 09/05/23 20:00 09/06/23 00:00 Temperature 97.7 F Pulse Rate 65 65 57 L Respiratory Rate 17 Blood Pressure 103/59 L Pulse Oximetry 94 Oxygen Delivery Oxygen Flow Rate 09/06/23 04:00 09/06/23 08:46 09/06/23 08:48 Temperature Pulse Rate 57 L 75 Respiratory Rate Blood Pressure Pulse Oximetry Oxygen Delivery Room Air Oxygen Flow Rate 09/06/23 07:06 09/06/23 07:00 09/06/23 11:06 Temperature 97.3 F L 97.1 F L Pulse Rate 63 66 Respiratory Rate 20 18 Blood Pressure 112/81 109/66 Pulse Oximetry 91 93 Oxygen Delivery Room Air Oxygen Flow Rate Intake/Output Intake/Output: Intake & Output 09/03/23 09/04/23 09/05/23 09/06/23 23:59 23:59 23:59 23:59 Intake Total 400 50 Balance 400 50 Meds/Results Medications: Active Medications Generic Name Dose Route Start Last Admin Trade Name Sabinoq PRN Reason Stop Dose Admin Acetaminophen 650 mg 09/06/23 10:45 09/06/23 12:07 Acetaminophen 325 Mg Tablet PO 650 mg Q4H RENETTA Administration Amlodipine Besylate 10 mg 09/06/23 09:00 09/06/23 08:48 Amlodipine Besylate 5 Mg Tablet PO 10 mg DAILY RENETTA Administration Apixaban 2.5 mg
[2023-09-06] MEDS: ATORVASTATIN 20 MG TABLET PO (18:32)
[2023-09-06] MEDS: FINASTERIDE 5 MG TABLET PO (20:20)
[2023-09-07 00:02] VITALS: PULSE 56
[2023-09-07 02:05] VITALS: BP 108/59; PULSE 65; RESP 20; TEMP 36.9; O2SAT 98
[2023-09-07 04:02] VITALS: PULSE 71
[2023-09-07] MEDS: oxyCODONE HCL (*CRX) 5 MG TAB IR PO (04:12)
[2023-09-07 06:00] VITALS: BP 125/57; PULSE 68; RESP 16; TEMP 36.7; O2SAT 95
[2023-09-07 06:15] LABS: Basophils Percent Auto 0.5 % (0.2-1.2); Eosinophils Absolute Auto 0.1 K/mm3 (0-0.3); Hemoglobin 11.6 g/dL (14.0-18.0); Immature Granulocyte Absolute 0.02 K/mm3 (0.00-0.031); Immature Granulocyte Percent A 0.3 % (0-0.5); Lymphocytes Percent Auto 18.5 % (18.3-44.2); Mean Corpuscular HGB Conc 32.2 g/dl (32-36); Mean Platelet Volume 9.2 fl (7.4-10.4); Monocytes Absolute Auto 0.7 K/mm3 (0.1-0.6); Monocytes Percent Auto 11.6 % (2.6-8.5); Neutrophils Percent Auto 68.1 % (45.5-73.1); Platelet Count Result 123 k/mm3 (150-375); Red Blood Count 4.14 M/mm3 (4.6-6.20); Red Cell Distribution Width 15.2 % (11.5-14.5); White Blood Count 5.9 K/mm3 (4.5-10.0)
[2023-09-07] MEDS: oxyCODONE HCL (*CRX) 2.5 MG TAB IR PO ×2 (06:23→09:50)
[2023-09-07] MEDS: ACETAMINOPHEN 325 MG TABLET 650 MG PO ×2 (06:23→09:51)
[2023-09-07 06:27] LABS: Anion Gap 2 mmol/L (4-12); Blood Urea Nitrogen 16 mg/dL (9-20); Calcium 8.2 mg/dL (8.4-10.2); Carbon Dioxide 30 mmol/L (22-30); Chloride 106 mmol/L (98-107); Estimated CRCL calculation 54 ml/min; Estimated Glomerular Filt Rate > 60; Glucose 96 mg/dL (65-110); Potassium 3.5 mmol/L (3.4-5.0); Sodium 138 mmol/L (137-145)
--- NOTE | 2023-09-07 07:34 | PM.PNORT ---
Subjective Subjective Date/Time Seen: 09/07/23 07:34 Interval history: Postop day 2 patient is alert. Afebrile vital signs are stable. Patient's symptoms that he was having while up ambulating yesterday have completely dissipated. He has been up walking late yesterday afternoon as well as overnight and is comfortable. He is having no symptoms at all. Morning labs are noted. Dressing is dry and intact. He has no increased swelling in either lower extremity. Mild swelling thigh. Overall patient is feeling very well and is eager to go home Objective Data Vital Signs Vital Signs: Vital Signs - 24 hr 09/06/23 08:46 09/06/23 08:48 09/06/23 11:06 Temperature 97.1 F L Pulse Rate 75 66 Respiratory Rate 18 Blood Pressure 109/66 Pulse Oximetry 93 Oxygen Delivery Room Air 09/06/23 15:06 09/06/23 20:25 09/06/23 20:02 Temperature 97.5 F L Pulse Rate 65 65 57 L Respiratory Rate 18 18 Blood Pressure 148/79 H Pulse Oximetry 96 96 Oxygen Delivery Room Air 09/06/23 22:00 09/07/23 00:02 09/07/23 02:05 Temperature 98.4 F 98.5 F Pulse Rate 59 L 56 L 65 Respiratory Rate 16 20 Blood Pressure 112/57 L 108/9 L Pulse Oximetry 94 98 Oxygen Delivery 09/07/23 04:02 Temperature Pulse Rate 71 Respiratory Rate Blood Pressure Pulse Oximetry Oxygen Delivery Intake/Output Intake/Output: Intake & Output 09/04/23 09/05/23 09/06/23 09/07/23 23:59 23:59 23:59 23:59 Intake Total 400 1506 Balance 400 1506 Meds/Results Medications: Active Medications Generic Name Dose Route Start Last Admin Trade Name Freq PRN Reason Stop Dose Admin Acetaminophen 650 mg 09/06/23 10:45 09/07/23 06:23 Acetaminophen 325 Mg Tablet PO 650 mg Q4H RENETTA Administration Amlodipine Besylate 10 mg 09/06/23 09:00 09/06/23 08:48 Amlodipine Besylate 5 Mg Tablet PO 10 mg DAILY RENETTA Administration Apixaban 2.5 mg 09/06/23 09:00 09/06/23 20:20 Apixaban 2.5 Mg Tablet PO 2.5 mg Q12HR RENETTA Administration Atorvastatin Calcium 20 mg 09/05/23 18:00 09/06/23 18:32 Atorvastatin 20 Mg Tablet PO 20 mg QPM RENETTA Administration Cefdinir 300 mg 09/06/23 09:00 09/06/23 20:20 Cefdinir 300 Mg Capsule PO 300 mg Q12HR RENETTA Administration Celecoxib 100 mg 09/06/23 09:00 09/06/23 08:53 Celecoxib 100 Mg Capsule PO Not Given DAILY RENETTA Diphenhydramine HCl 25 mg 09/05/23 13:21 Diphenhydramine Hcl Inj 50 Mg/Ml Vial IV PUSH Q6H PRN Itching Famotidine 20 mg 09/05/23 21:00 09/06/23 20:19 Famotidine 20 Mg Tablet PO Not Given Q12HR RENETTA Finasteride 5 mg 09/05/23 21:00 09/06/23 20:20 Finasteride 5 Mg Tablet PO 5 mg HS RENETTA Administration Metoprolol Succinate 25 mg 09/06/23 09:00 09/06/23 08:48 Metoprolol Succinate Ext Rel 25 Mg Tabcr PO 25 mg DAILY RENETTA Administration Morphine Sulfate 2 mg 09/05/23 13:21 09/05/23 14:09 Morphine Sulfate (*Crx) 2 Mg/Ml Inj IV PUSH 2 mg Q2H PRN Administration Breakthrough Pain Rated 7-10 Naloxone HCl 0.1 mg 09/05/23 13:21 Naloxone Hcl 0.4 Mg/Ml Vial IV PUSH Q2M PRN Opiate Reversal Ondansetron HCl 4 mg 09/05/23 13:21 Ondansetron Inj 4 Mg/2 Ml Vial IV PUSH Q4H PRN Nausea And Vomiting Oxycodone HCl 5 mg 09/05/23 13:21 09/07/23 04:12 Oxycodone Hcl (*Crx) 5 Mg Tab Ir PO 5 mg Q4H PRN Administration Pain Rated 4-10 Oxycodone HCl 2.5 mg 09/06/23 10:45 09/07/23 06:23 Oxycodone Hcl (*Crx) 2.5 Mg Tab Ir PO 2.5 mg Q4H RENETTA Administration Polyethylene Glycol 17 gm 09/06/23 09:00 09/06/23 08:52 Polyethylene Glycol 3350 17 Gm Powd.Pack PO 17 gm QAM RENETTA Administration Sacubitril/Valsartan 1 tab 09/05/23 21:00 06/11/24 20:20 Sacubitril/Valsartan 24-26 Mg Tablet PO 1 tab Q12HR RENETTA Administration Senna/Docusate Sodium 2 tab 09/05/23 17:00 09/06/23 17:17 Senna/Docusate Sodium Tablet PO 2 tab BID RENETTA A
--- NOTE | 2023-09-07 07:49 | PM.DS ---
DS: Admitting Diagnosis Discharge Date 09/06 Admitting Diagnosis Left hip DJD DS: Discharge Diagnosis Discharge Diagnosis (1) Status post total hip replacement, left: Code(s): Z96.642 - Presence of left artificial hip joint Status: Acute DS: Summary Hospital Course Hospital Course: 82-year-old male who underwent left anterior total hip arthroplasty on 09/04. Postop day 1 patient was alert. He was having some difficulty with dizziness and lightheadedness when he was up ambulating. Because of his symptoms he was kept for another day. Orthostatic blood pressures were done. Patient had a typical hemoglobin decreased from surgery. Chem panel is were normal postoperatively. Postop day 2 patient was alert. All of his symptoms dissipated. Hemoglobin this was 11.7. Vital signs been stable. He is comfortable and ready to go. He is on Eliquis for DVT prophylaxis. He is on 100 mg Celebrex daily for 10 days. He is on Omnicef for 7 days postop. He is on Tylenol 650 mg q.4 hours as well as oxycodone 5 mg q.4 hours pain control. Patient was advised to keep leg elevated home prevent swelling. He was advised any questions or concerns he is to call the office otherwise we will see him his appointments. Time Spent with Patient Time attestation: Total time spent providing and/or coordinating discharge services: DS: Data Data Completed and Pending Labs on day of discharge: Labs from last 24 hours 09/07/23 05:51 WBC 5.9 RBC 4.14 L Hgb 11.6 L Hct 36.0 L MCV 87.0 MCH 28.0 MCHC 32.2 RDW 15.2 H Plt Count 123 L MPV 9.2 Immature Gran % (Auto) 0.3 Neut % (Auto) 68.1 Lymph % (Auto) 18.5 Catron % (Auto) 11.6 H Eos % (Auto) 1.0 Baso % (Auto) 0.5 Lymph # (Auto) 1.10 Catron # (Auto) 0.7 H Eos # (Auto) 0.1 Baso # (Auto) 0.0 Abs Immat Gran (auto) 0.02 Absolute Neuts (auto) 4.0 Absolute Nucleated RBC 0.000 Nucleated RBC % 0.0 Sodium 138 Potassium 3.5 Chloride 106 Carbon Dioxide 30 Anion Gap 2 L BUN 16 Creatinine 0.90 Estim Creat Clear Calc 54 Estimated GFR > 60 Glucose 96 Calcium 8.2 L Discharge Plan Discharge Attending physician on discharge: Clarence Enamorado Consulting providers: Chaz Sim Discharging Clinician: Ayden Fritz Anticipated Discharge Date/Time: 09/07/23 07:36 Patient Disposition: Home, Self-Care Activity: may shower Diet: as tolerated Wound Care Instructions: follow printed instructions Discharge Instructions: CLARENCE ENAMORADO M.D [facility] [address] [address] [place] [address] POST-OPERATIVE DISCHARGE INSTRUCTIONS ANTERIOR TOTAL HIP ARTHROPLASTY 1. Move toes/feet up and down every hour while awake. 2. Be up walking every hour while awake. 3. Use walker time buyer if instructed to use walker time buyer.When you are allowed to use the cane, use the cane in the opposite hand. 4. When resting, do not rest in the chair. Rather, lie on your back, with back flat, and the leg elevated above heart to minimize swelling. You may put a pillow under your head. Do not rest in a chair. Resting in the chair results in swelling in the leg. Significant swelling could indicate a blood clot and if this occurs, call the office (or go to the ER) to have a venous ultrasound performed. Its ok to sit in the chair to eat and use the toilet and to receive a guest but sitting in a chair will cause your leg to swell. so try to minimize sitting in a chair. 5. Wound Care: Apply a folded 4x4 sponge to incision and hold with crossing strips of 1 inch Transpore tape. 6. Follow weight bearing status as instructed: 7. May shower. Remove dressing before shower and reapply dressing after shower. Patient Instructions: Apixaban (By mouth) Follow-up/Referrals: Clarence Enamorado MD [Physician] - Keep Reg. Scheduled Appt. Discharge Medications: New oxycodone 5 mg Tablet 5 mg PO Q4H PRN (Reaso
--- NOTE | 2023-09-07 07:57 | PCPTNOTE ---
Attempted to see patient for PT, however patient was eating his breakfast.
[2023-09-07 08:02] VITALS: PULSE 76
[2023-09-07] MEDS: polyethylene glycoL 3350 17 GM POWD.PACK PO (09:51)
[2023-09-07] MEDS: CELECOXIB 100 MG CAPSULE PO (09:51)
[2023-09-07 09:52] VITALS: PULSE 66
[2023-09-07] MEDS: METOPROLOL SUCCINATE EXT REL 25 MG TABCR PO (09:52)
[2023-09-07] MEDS: CEFDINIR 300 MG CAPSULE PO (09:52)
[2023-09-07] MEDS: amLODIPine BESYLATE 5 MG TABLET 10 MG PO (09:52)
[2023-09-07] MEDS: SENNA/DOCUSATE SODIUM TABLET 2 TAB PO (09:53)
[2023-09-07] MEDS: APIXABAN 2.5 MG TABLET PO (09:53)
[2023-09-07] MEDS: SACUBITRIL/VALSARTAN 24-26 MG TABLET 1 TAB PO (09:53)
== END 2023-09-07 11:20 | disposition home or self-care (01) ==
LOC: ANHSURGERY 11:03 → ANH3MEDSUR 09-07 07:43
PROVIDERS: Internal Medicine; Physician Assistant Surgical; Admitting Provider Orthopaedic Surgery; PCP Physician Assistant; Visit Provider Orthopaedic Surgery
PROC: (CPT 27130; principal; 2023-09-05 07:30)
DX: M16.12 Unilateral primary osteoarthritis, left hip (principal); I10 Essential (primary) hypertension; E78.5 Hyperlipidemia, unspecified; I42.9 Cardiomyopathy, unspecified; I25.10 Atherosclerotic heart disease of native coronary artery without angina pectoris; I44.7 Left bundle-branch block, unspecified
CPT/HCPCS: 27130; 36415; 73501; 80048; 80307; 82040; 83036; 83735; 84100; 85025; 86850; 86900; 86901; 87081; 97110; 97116; 97161; 97165; 97530; 97535; 99199; A9270; C1776; G0378; J0171; J0690; J1100; J1170; J1885; J2270; J2405; J2704; J2795; J3010; J3370; J7120